=== PATIENT | female | born 1995 | race Caucasian/White ===

== ENCOUNTER 2025-02-06 13:18 | Emergency (ER) | payer OTHER ==
[~2025-02-06] VITALS: Ht 165.1 cm; Wt 54.4 kg
[2025-02-06 13:26] VITALS: O2SAT 100
[2025-02-06 17:01] VITALS: BP 111/69; PULSE 69; RESP 16; TEMP 36.8; O2SAT 100
== END 2025-02-06 17:09 | disposition home or self-care (01) ==
LOC: ER 13:18
DX: S60.031A Contusion of right middle finger without damage to nail, initial encounter (principal); M79.644 Pain in right finger(s); R20.0 Anesthesia of skin; Z79.899 Other long term (current) drug therapy; Z90.49 Acquired absence of other specified parts of digestive tract; X58.XXXA Exposure to other specified factors, initial encounter; Y93.89 Activity, other specified; Y92.89 Other specified places as the place of occurrence of the external cause; Y99.8 Other external cause status
CPT/HCPCS: 73140; 81025; 99284